=== PATIENT | male | born 1990 | race Caucasian/White ===

== ENCOUNTER 2018-05-06 19:54 | Emergency (ER) | payer OTHER ==
[~2018-05-06] VITALS: Ht 177.8 cm; Wt 72.6 kg
[~2018-05-06 19:54] MED LIST: ALBUTEROL0.09 MG/A2 IH; BACTRIM DS 8001 TA1 PO; BIAXIN500 MG PO; FLEXERIL10 MG PO; IBU800 MG PO; LOTRIMIN1% T; LOTRIMIN1% TP; MEDROL DOSEPAK4 MG PO; NAPROSYN500 MG PO; NKHM; PENICILLIN VK500 MG PO; ROBAXIN750 MG PO; SPECTAZOLE PO; ZITHROMAX Z PA250 MG PO
[2018-05-06] MEDS ORDERED: Motrin,Rufen800 MG PO (21:12)
== END 2018-05-06 21:30 | disposition home or self-care (01) ==
LOC: ED 19:54
DX: S60.221A Contusion of right hand, initial encounter (principal); W23.0XXA Caught, crushed, jammed, or pinched between moving objects, initial encounter; Y93.89 Activity, other specified; Y92.89 Other specified places as the place of occurrence of the external cause; Y99.0 Civilian activity done for income or pay